=== PATIENT | female | born 1995 | race Two or more races ===

== ENCOUNTER 2022-03-07 04:15 | Inpatient (IN) | payer OTHER ==
[2022-03-07 05:46] LABS: HEMATOCRIT 30.5 % (32.4-45.2); HEMOGLOBIN 10.4 GM/dL (10.7-15.3); MCH 28.8 pg (25.7-33.7); MCHC 34.1 g/dl (32.0-36.0); MEAN CELL VOLUME 84.5 fl (80-96); MEAN PLT VOLUME 9.6 fl (7.5-11.1); PLATELET COUNT 198 10^3/uL (134-434); RBC 3.61 M/mm3 (3.60-5.2); RDW 13.4 % (11.6-15.6); WHITE BLOOD COUNT 9.6 K/mm3 (4.0-10.0)
[2022-03-07] MEDS ORDERED: BETAMET ACET/BETAMET NA PH 30 MG/5 ML VIAL ONE (07:36)
[2022-03-07] MEDS ORDERED: BETAMET ACET/BETAMET NA PH 30 MG/5 ML VIAL IM ONE (07:40)
[2022-03-07] MEDS ORDERED: DEXTROSE 5%-LACTATED RINGERS 1,000 ML IV ONE (08:00)
[2022-03-07 09:12] LABS: INR 0.9 (0.83-1.09); PROTHROMBIN TIME (PATIENT) 10.3 SEC (9.7-13.0)
[2022-03-07 09:15] LABS: ACTIVATED PTT 25.4 SECONDS (25.2-36.5)
[2022-03-07 09:26] LABS: BLOOD UREA NITROGEN 10.3 mg/dL (7-18); CALCIUM 8.7 mg/dL (8.5-10.1)
[2022-03-07 09:29] LABS: CREATININE 0.5 mg/dL (0.55-1.3)
[2022-03-07 09:46] VITALS: BMI 23.3
[2022-03-07 10:52] LABS: EPI CELLS 8 /uL (0-25.1); HYALINE CASTS 0 /uL (0-3.1); PH,URINE 6.5 (5.0-8.0); URINE APPEARANCE CLEAR; URINE BACTERIA 174 /uL (0-1359); URINE BILIRUBIN NEGATIVE (NEGATIVE); URINE COLOR YELLOW; URINE GLUCOSE (UA) NEGATIVE (NEGATIVE); URINE KETONE NEGATIVE (NEGATIVE); URINE LEUK ESTERASE NEGATIVE (NEGATIVE); URINE NITRITE NEGATIVE (NEGATIVE); URINE PROTEIN NEGATIVE (NEGATIVE); URINE RBC 12 /uL (0-23.9); URINE UROBILINOGEN 0.2 mg/dL (0.2-1.0); URINE WBC 3 /uL (0-25.8)
[2022-03-07] MEDS ORDERED: MAGNESIUM 4GM/H20 - 4 GM/100 ML IVPB IVPB ONE ×2 (11:33→12:01)
[2022-03-07] MEDS ORDERED: MAGNESIUM SULFATE 20GM/500ML - 20 GM/500 ML INFUS.BAG ONE ×2 (11:38→22:06)
[2022-03-07] MEDS ORDERED: AMPICILLIN SODIUM 2 GM VIAL ONE (11:39)
[2022-03-07] MEDS: MAGNESIUM SULFATE 20GM/500ML - 20 GM/500 ML INFUS.BAG IV SCH ×2 (12:05→22:05)
[2022-03-07] MEDS ORDERED: MAGNESIUM 4GM/H20 - 4 GM/100 ML IVPB IVPB SCH (12:15)
[2022-03-07] MEDS ORDERED: MAGNESIUM SULFATE 20GM/500ML - 20 GM/500 ML INFUS.BAG IV SCH (12:45)
[2022-03-07] MEDS ORDERED: AMPICILLIN - 2 GM in SODIUM CHLORIDE 100 ML IVPB ONE (12:46)
[2022-03-07 13:20] LABS: HEPATITIS B SURFACE AG MATERN NON-REACTIVE (NONREACTIVE)
[2022-03-07 13:49] LABS: HIV INTERPRETATION NEGATIVE (NEGATIVE)
[2022-03-07] MEDS ORDERED: DEXTROSE 5%-LACTATED RINGERS 1,000 ML IV SCH (15:30)
[2022-03-07] MEDS ORDERED: AMPICILLIN - 1 GM in SODIUM CHLORIDE 100 ML IVPB SCH (16:00)
[2022-03-07] MEDS: AMPICILLIN - 1 GM in SODIUM CHLORIDE 100 ML IVPB SCH ×2 (16:30→20:50)
[2022-03-07] MEDS ORDERED: AMPICILLIN SODIUM 1 GM VIAL ONE ×2 (16:47→20:51)
[2022-03-07 21:28] LABS: MAGNESIUM 4.9 mg/dL (1.8-2.4)
[2022-03-08] MEDS ORDERED: DEXTROSE 5%-LACTATED RINGERS 1,000 ML IV SCH
[2022-03-08] MEDS: MAGNESIUM SULFATE 20GM/500ML - 20 GM/500 ML INFUS.BAG IV SCH
[2022-03-08] MEDS ORDERED: AMPICILLIN SODIUM 1 GM VIAL ONE ×3 (00:59→08:24)
[2022-03-08] MEDS: AMPICILLIN - 1 GM in SODIUM CHLORIDE 100 ML IVPB SCH ×2 (01:00→05:05)
[2022-03-08 06:10] VITALS: TEMP 98
[2022-03-08] MEDS ORDERED: BETAMET ACET/BETAMET NA PH 30 MG/5 ML VIAL IM ONE (07:45)
[2022-03-08 07:59] VITALS: BP 99/55; PULSE 82; RESP 17
[2022-03-08] MEDS ORDERED: AMPICILLIN - 1 GM in SODIUM CHLORIDE 100 ML IVPB ONE (08:30)
== END 2022-03-08 10:30 | disposition home or self-care (01) | DRG 566 ==
LOC: JDEL 04:15 → JLDR 08:15
PROVIDERS: ADMIT Specialist; ATTEND Specialist
DX: O44.13 Complete placenta previa with hemorrhage, third trimester (principal); Z3A.30 30 weeks gestation of pregnancy
CPT/HCPCS: 36415; 59025; 76815; 76817-TC; 80048; 81003; 83735; 85027; 85610; 85730; 86780; 86850; 86900; 86901; 87086; 87340; 87389; 96372; C9803-CS; U0003; U0005

== ENCOUNTER 2022-04-02 05:55 | Inpatient (IN) | payer OTHER ==
[2022-04-02] MEDS: LACTATED RINGERS SOLUTION 1,000 ML IV SCH (06:30)
[2022-04-02 06:53] VITALS: BMI 24.5
[2022-04-02 07:22] LABS: BASO % 0.2 % (0-2.0); EOS % 0.7 % (0-4.5); HEMATOCRIT 32.2 % (32.4-45.2); HEMOGLOBIN 10.8 GM/dL (10.7-15.3); LYMPH % 29.2 % (8-40); MCH 28.1 pg (25.7-33.7); MCHC 33.4 g/dl (32.0-36.0); MEAN CELL VOLUME 84.4 fl (80-96); MEAN PLT VOLUME 10.1 fl (7.5-11.1); MONO % 10.5 % (3.8-10.2); NEUT % 59.4 % (42.8-82.8); PLATELET COUNT 189 10^3/uL (134-434); RBC 3.82 M/mm3 (3.60-5.2); RDW 14.9 % (11.6-15.6); WHITE BLOOD COUNT 9.9 K/mm3 (4.0-10.0)
[2022-04-02 07:33] LABS: INR 0.94 (0.83-1.09); PROTHROMBIN TIME (PATIENT) 10.9 SEC (9.7-13.0)
[2022-04-02 07:35] LABS: ACTIVATED PTT 25.2 SECONDS (25.2-36.5)
[2022-04-02 07:49] LABS: CALCIUM 8.7 mg/dL (8.5-10.1)
[2022-04-02 07:50] LABS: BLOOD UREA NITROGEN 13.8 mg/dL (7-18)
[2022-04-02 07:53] LABS: CREATININE 0.5 mg/dL (0.55-1.3)
[2022-04-02] MEDS ORDERED: TRANEXAMIC ACID 1000 MG/10 ML VIAL IVPUSH ONE (07:57)
[2022-04-02] MEDS: ELECTROLYTE-148 SOLN 1,000 ML IV SCH (09:00)
[2022-04-02] MEDS ORDERED: CITRIC ACID/SODIUM CITRATE 30 ML UNIT-DOSE CUP PO ONE (09:31)
[2022-04-02] MEDS ORDERED: FENTANYL CITRATE/PF 50 MCG/ML VIAL ONE (09:46)
[2022-04-02] MEDS ORDERED: morphine SULFATE (PF) 1 MG/2 ML SYRINGE ONE (09:46)
[2022-04-02] MEDS ORDERED: ceFAZolin SODIUM 1 GM VIAL ONE (10:05)
[2022-04-02] MEDS ORDERED: DEXAMETHASONE SOD PHOSPHATE 4 MG/1 ML VIAL ONE (10:52)
[2022-04-02] MEDS ORDERED: ONDANSETRON 4 MG/2 ML VIAL ONE (10:52)
[2022-04-02] MEDS ORDERED: METHYLERGONOVINE MALEATE 0.2 MG/1 ML AMP IM PRN (11:26)
[2022-04-02] MEDS ORDERED: ACETAMINOPHEN 325 MG TABLET (FP) PO SCH (11:30)
[2022-04-02] MEDS ORDERED: IBUPROFEN 600 MG TABLET (FP) PO SCH (11:30)
[2022-04-02] MEDS: OXYTOCIN 20 UNITS in 0.9% NS 20 UNIT/1,000 ML INFUS.BAG IV SCH (12:45)
[2022-04-02] MEDS ORDERED: OXYTOCIN 20 UNITS in 0.9% NS 20 UNIT/1,000 ML INFUS.BAG IV ONE (12:47)
[2022-04-02] MEDS: ACETAMINOPHEN 1000 MG/100 ML BAG IVPB SCH ×2 (13:39→20:04)
[2022-04-02] MEDS ORDERED: ELECTROLYTE-148 SOLN 1,000 ML IV SCH (15:00)
[2022-04-02] MEDS: IBUPROFEN 800 MG/8 ML IJ IVPB SCH ×2 (15:54→22:37)
[2022-04-02 16:23] LABS: BASO % 0.1 % (0-2.0); EOS % 0.1 % (0-4.5); HEMATOCRIT 29.8 % (32.4-45.2); MCH 28.1 pg (25.7-33.7); MCHC 33.5 g/dl (32.0-36.0); MEAN CELL VOLUME 83.6 fl (80-96); MEAN PLT VOLUME 9.3 fl (7.5-11.1); NEUT % 87.8 % (42.8-82.8); PLATELET COUNT 171 10^3/uL (134-434); RBC 3.57 M/mm3 (3.60-5.2); RDW 14.7 % (11.6-15.6); WHITE BLOOD COUNT 13.5 K/mm3 (4.0-10.0)
[2022-04-02] MEDS ORDERED: oxyCODONE HCL 5 MG TABLET PO PRN (23:26)
[2022-04-03] MEDS: ACETAMINOPHEN 1000 MG/100 ML BAG IVPB SCH ×2 (01:31→07:06)
[2022-04-03] MEDS: SIMETHICONE 80 MG TAB.CHEW (FP) PO PRN ×2 (04:48→20:59)
[2022-04-03] MEDS: IBUPROFEN 800 MG/8 ML IJ IVPB SCH ×3 (04:50→16:46)
[2022-04-03] MEDS: oxyCODONE HCL 5 MG TABLET PO PRN (08:41)
[2022-04-03 09:19] LABS: BASO % 0.4 % (0-2.0); EOS % 0.3 % (0-4.5); HEMATOCRIT 26.4 % (32.4-45.2); HEMOGLOBIN 8.9 GM/dL (10.7-15.3); LYMPH % 19.7 % (8-40); MCH 28.2 pg (25.7-33.7); MCHC 33.7 g/dl (32.0-36.0); MEAN CELL VOLUME 83.7 fl (80-96); MEAN PLT VOLUME 9.7 fl (7.5-11.1); MONO % 8.9 % (3.8-10.2); NEUT % 70.7 % (42.8-82.8); PLATELET COUNT 174 10^3/uL (134-434); RBC 3.16 M/mm3 (3.60-5.2); RDW 14.7 % (11.6-15.6); WHITE BLOOD COUNT 11.3 K/mm3 (4.0-10.0)
[2022-04-03] MEDS ORDERED: BISACODYL 10 MG SUPP.RECT RC PRN (11:26)
[2022-04-03] MEDS: PRENATAL VITAMINS W/ FOLIC ACID TABLET (FP) PO SCH (11:58)
[2022-04-03] MEDS: FERROUS SO4 325 MG TABLET (FP) PO SCH ×2 (16:45→21:10)
[2022-04-03] MEDS: IBUPROFEN 600 MG TABLET (FP) PO SCH (23:03)
[2022-04-04] MEDS: oxyCODONE HCL 5 MG TABLET PO PRN (01:57)
[2022-04-04] MEDS: IBUPROFEN 600 MG TABLET (FP) PO SCH ×3 (06:24→19:04)
[2022-04-04] MEDS: FERROUS SO4 325 MG TABLET (FP) PO SCH ×2 (09:32→21:17)
[2022-04-04] MEDS: PRENATAL VITAMINS W/ FOLIC ACID TABLET (FP) PO SCH (09:32)
[2022-04-04] MEDS: ACETAMINOPHEN 325 MG TABLET (FP) PO SCH ×2 (15:31→20:50)
[2022-04-04] MEDS: LACTATED RINGERS SOLUTION 1,000 ML IV SCH (19:48)
[2022-04-04] MEDS: ELECTROLYTE-148 SOLN 1,000 ML IV SCH ×2 (19:48→19:49)
[2022-04-04] MEDS: OXYTOCIN 20 UNITS in 0.9% NS 20 UNIT/1,000 ML INFUS.BAG IV SCH (19:49)
[2022-04-04] MEDS: SIMETHICONE 80 MG TAB.CHEW (FP) PO PRN (20:51)
[2022-04-05] MEDS: IBUPROFEN 600 MG TABLET (FP) PO SCH ×4 (00:16→18:14)
[2022-04-05] MEDS: ACETAMINOPHEN 325 MG TABLET (FP) PO SCH ×5 (02:36→20:32)
[2022-04-05] MEDS: PRENATAL VITAMINS W/ FOLIC ACID TABLET (FP) PO SCH (09:29)
[2022-04-05] MEDS: FERROUS SO4 325 MG TABLET (FP) PO SCH ×2 (09:30→21:27)
[2022-04-05] MEDS: DOCUSATE SODIUM 100 MG CAPSULE (FP) PO SCH ×2 (18:13→21:26)
[2022-04-05] MEDS: SIMETHICONE 80 MG TAB.CHEW (FP) PO PRN ×2 (18:14→20:35)
[2022-04-05] MEDS: LACTATED RINGERS SOLUTION 1,000 ML IV SCH (19:40)
[2022-04-05] MEDS: ELECTROLYTE-148 SOLN 1,000 ML IV SCH (19:40)
[2022-04-05] MEDS ORDERED: SENNOSIDES 8.6MG TABLET (FP) PO SCH (22:00)
[2022-04-06] MEDS: IBUPROFEN 600 MG TABLET (FP) PO SCH ×3 (00:14→11:06)
[2022-04-06] MEDS: ACETAMINOPHEN 325 MG TABLET (FP) PO SCH ×3 (04:13→14:08)
[2022-04-06] MEDS: SIMETHICONE 80 MG TAB.CHEW (FP) PO PRN (06:00)
[2022-04-06] MEDS: DOCUSATE SODIUM 100 MG CAPSULE (FP) PO SCH ×2 (06:00→14:08)
[2022-04-06] MEDS: FERROUS SO4 325 MG TABLET (FP) PO SCH (09:04)
[2022-04-06] MEDS: PRENATAL VITAMINS W/ FOLIC ACID TABLET (FP) PO SCH (09:04)
[2022-04-06 09:22] VITALS: PULSE 73; TEMP 98.1
[2022-04-06 12:46] VITALS: BP 111/71; RESP 18
[2022-04-06 13:05] LABS: BASO % 0.1 % (0-2.0); EOS % 1.7 % (0-4.5); HEMATOCRIT 27.1 % (32.4-45.2); HEMOGLOBIN 9.1 GM/dL (10.7-15.3); LYMPH % 20.6 % (8-40); MCH 28.5 pg (25.7-33.7); MCHC 33.4 g/dl (32.0-36.0); MEAN CELL VOLUME 85.2 fl (80-96); MEAN PLT VOLUME 8.4 fl (7.5-11.1); MONO % 6.8 % (3.8-10.2); NEUT % 70.8 % (42.8-82.8); PLATELET COUNT 230 10^3/uL (134-434); RBC 3.18 M/mm3 (3.60-5.2)
== END 2022-04-06 16:00 | disposition home or self-care (01) | DRG 540 ==
LOC: JDEL 05:55 → JLDR 06:15 → J3W 12:50
PROVIDERS: ADMIT Obstetrics & Gynecology; ATTEND Obstetrics & Gynecology
PROC: 10D00Z1 Extraction of Products of Conception, Low, Open Approach (ICD-10-PCS; principal; 2022-04-02)
DX: O44.03 Complete placenta previa NOS or without hemorrhage, third trimester (principal); Z3A.34 34 weeks gestation of pregnancy; Z37.0 Single live birth
CPT/HCPCS: 36415; 80048; 85025; 85384; 85610; 85730; 86780; 86922; 88307-TC; C9803-CS; U0003; U0005

== ENCOUNTER → 2023-10-07 | Day surgery (SDC) | payer OTHER | END | disposition home or self-care (01) | LOC: FRADUS-SUR 08:27 | PROVIDERS: ATTEND Specialist | PROC: 0HBT3ZX Excision of Right Breast, Percutaneous Approach, Diagnostic (ICD-10-PCS; principal; 2023-10-07) | DX: D24.1 Benign neoplasm of right breast (principal); N63.15 Unspecified lump in the right breast, overlapping quadrants | CPT/HCPCS: 19083; 87899; 88305-TC; A4648 ==